=== PATIENT | male | born 1960 | race African-American/Black ===

== ENCOUNTER 2021-07-28 14:06 | Inpatient (IN) | payer OTHER ==
[2021-07-28] MEDS ORDERED: ACETAMINOPHEN 325 MG TABLET (FP) PO PRN ×2 (17:36)
[2021-07-28] MEDS ORDERED: LOPERAMIDE HCL 2 MG CAPSULE PO PRN (17:36)
[2021-07-28] MEDS ORDERED: MAGNESIUM CITRATE 300 ML BOTTLE PO PRN (17:36)
[2021-07-28] MEDS ORDERED: METHOCARBAMOL 500 MG TABLET PO PRN (17:36)
[2021-07-28] MEDS ORDERED: BISMUTH SUBSALICYLATE 524 MG/30 ML PO PRN (17:36)
[2021-07-28] MEDS ORDERED: chlordiazePOXIDE HCL 25 MG CAPSULE PO PRN (17:36)
[2021-07-28] MEDS ORDERED: NICOTINE 10 MG CARTRIDGE (INHALER) IH PRN (17:36)
[2021-07-28] MEDS ORDERED: MAG HYDROX/AL HYDROX/SIMETH 30 ML UNIT-DOSE CUP PO PRN (17:36)
[2021-07-28] MEDS ORDERED: ONDANSETRON *ODT* 4 MG TABLET SL PRN (17:36)
[2021-07-28 17:53] VITALS: BMI 33.7
[2021-07-28] MEDS: MAGNESIUM HYDROX 2400MG/30ML ORAL SUSPENSION 30 ML CUP PO PRN (21:38)
[2021-07-28] MEDS: chlordiazePOXIDE HCL 25 MG CAPSULE PO SCH (22:30)
[2021-07-28] MEDS: MELATONIN 5 MG TABLETS PO SCH (22:31)
[2021-07-28] MEDS: IBUPROFEN 400 MG TABLET (FP) PO PRN (22:31)
[2021-07-28] MEDS: THIAMINE HCL 100 MG TABLET (FP) PO SCH (22:32)
[2021-07-28] MEDS: hydrOXYzine PAMOATE 25 MG CAPSULE (FP) PO SCH ×2 (22:32→23:35)
[2021-07-28] MEDS: MENTHOL/PHENOL 1 EACH UD MM PRN (22:33)
[2021-07-29] MEDS: hydrOXYzine PAMOATE 25 MG CAPSULE (FP) PO SCH ×5 (05:12→22:27)
[2021-07-29] MEDS: chlordiazePOXIDE HCL 25 MG CAPSULE PO SCH ×4 (05:12→22:27)
[2021-07-29] MEDS: PRENATAL VITAMINS W/ FOLIC ACID TABLET (FP) PO SCH (10:11)
[2021-07-29] MEDS: MENTHOL/PHENOL 1 EACH UD MM PRN ×3 (10:14→22:39)
[2021-07-29] MEDS: IBUPROFEN 400 MG TABLET (FP) PO PRN (10:14)
[2021-07-29 12:31] LABS: HEMATOCRIT 38.8 % (35.4-49); HEMOGLOBIN 12.7 GM/dL (11.7-16.9); MCH 26.9 pg (25.7-33.7); MCHC 32.7 g/dl (32.0-35.9); MEAN CELL VOLUME 82.2 fl (80-96); MEAN PLT VOLUME 7.6 fl (7.5-11.1); PLATELET COUNT 316 10^3/uL (134-434); RBC 4.71 M/mm3 (4.00-5.60); RDW 15.7 % (11.9-15.9); WHITE BLOOD COUNT 6.7 K/mm3 (4.0-10.0)
[2021-07-29 12:44] LABS: ALBUMIN 3.3 g/dl (3.4-5.0); BLOOD UREA NITROGEN 12.6 mg/dL (7-18)
[2021-07-29 12:45] LABS: CALCIUM 8.7 mg/dL (8.5-10.1)
[2021-07-29 12:49] LABS: BILIRUBIN,TOTAL 0.9 mg/dL (0.2-1); TOT PROT 7.2 g/dl (6.4-8.2)
[2021-07-29] MEDS: FAMOTIDINE 20 MG TABLET PO SCH (13:47)
[2021-07-29] MEDS: amLODIPine BESYLATE 10 MG TABLET (FP) PO SCH (13:48)
[2021-07-29] MEDS: MAGNESIUM HYDROX 2400MG/30ML ORAL SUSPENSION 30 ML CUP PO PRN (17:56)
[2021-07-29] MEDS: ALBUTEROL SO4 HFA INHALER IH PRN (20:41)
[2021-07-29] MEDS: ATORVASTATIN CA 40 MG TABLET (FP) PO SCH (22:27)
[2021-07-29] MEDS: THIAMINE HCL 100 MG TABLET (FP) PO SCH (22:27)
[2021-07-29] MEDS: MELATONIN 5 MG TABLETS PO SCH (22:27)
[2021-07-30] MEDS: hydrOXYzine PAMOATE 25 MG CAPSULE (FP) PO SCH ×5 (06:02→22:38)
[2021-07-30] MEDS: chlordiazePOXIDE HCL 25 MG CAPSULE PO SCH ×4 (06:02→22:40)
[2021-07-30] MEDS: ALBUTEROL SO4 HFA INHALER IH PRN ×3 (06:03→18:14)
[2021-07-30] MEDS: amLODIPine BESYLATE 10 MG TABLET (FP) PO SCH (10:25)
[2021-07-30] MEDS: PRENATAL VITAMINS W/ FOLIC ACID TABLET (FP) PO SCH (10:25)
[2021-07-30] MEDS: FAMOTIDINE 20 MG TABLET PO SCH (10:25)
[2021-07-30] MEDS: MENTHOL/PHENOL 1 EACH UD MM PRN ×2 (10:27→18:16)
[2021-07-30] MEDS: TIOTROPIUM BROMIDE 2.5 MCG (SPIRIVA) RESPIMAT INHALER IH SCH (13:19)
[2021-07-30] MEDS: MAGNESIUM HYDROX 2400MG/30ML ORAL SUSPENSION 30 ML CUP PO PRN (18:14)
[2021-07-30 19:11] LABS: SARS-CoV-2 NAA Not Detected (Not Detected)
[2021-07-30] MEDS: THIAMINE HCL 100 MG TABLET (FP) PO SCH (22:38)
[2021-07-30] MEDS: MELATONIN 5 MG TABLETS PO SCH (22:38)
[2021-07-30] MEDS: ATORVASTATIN CA 40 MG TABLET (FP) PO SCH (22:38)
[2021-07-30] MEDS: IBUPROFEN 400 MG TABLET (FP) PO PRN (22:41)
[2021-07-31] MEDS ORDERED: chlordiazePOXIDE HCL 10 MG CAPSULE PO PRN
[2021-07-31] MEDS: chlordiazePOXIDE HCL 10 MG CAPSULE PO SCH ×4 (06:37→22:09)
[2021-07-31] MEDS: hydrOXYzine PAMOATE 25 MG CAPSULE (FP) PO SCH ×5 (06:37→22:09)
[2021-07-31] MEDS: MENTHOL/PHENOL 1 EACH UD MM PRN ×3 (06:38→19:02)
[2021-07-31] MEDS: TIOTROPIUM BROMIDE 2.5 MCG (SPIRIVA) RESPIMAT INHALER IH SCH (06:40)
[2021-07-31] MEDS: MAGNESIUM HYDROX 2400MG/30ML ORAL SUSPENSION 30 ML CUP PO PRN (06:42)
[2021-07-31] MEDS: PRENATAL VITAMINS W/ FOLIC ACID TABLET (FP) PO SCH (10:32)
[2021-07-31] MEDS: amLODIPine BESYLATE 10 MG TABLET (FP) PO SCH (10:33)
[2021-07-31] MEDS: FAMOTIDINE 20 MG TABLET PO SCH (10:33)
[2021-07-31] MEDS: IBUPROFEN 400 MG TABLET (FP) PO PRN (10:35)
[2021-07-31] MEDS: ALBUTEROL SO4 HFA INHALER IH PRN (17:53)
[2021-07-31] MEDS: ATORVASTATIN CA 40 MG TABLET (FP) PO SCH (22:09)
[2021-07-31] MEDS: MELATONIN 5 MG TABLETS PO SCH (22:09)
[2021-07-31] MEDS: THIAMINE HCL 100 MG TABLET (FP) PO SCH (22:09)
[2021-08-01] MEDS: hydrOXYzine PAMOATE 25 MG CAPSULE (FP) PO SCH ×5 (05:24→22:43)
[2021-08-01] MEDS: chlordiazePOXIDE HCL 10 MG CAPSULE PO SCH ×2 (05:24→18:07)
[2021-08-01] MEDS: PRENATAL VITAMINS W/ FOLIC ACID TABLET (FP) PO SCH (10:34)
[2021-08-01] MEDS: amLODIPine BESYLATE 10 MG TABLET (FP) PO SCH (10:34)
[2021-08-01] MEDS: FAMOTIDINE 20 MG TABLET PO SCH (10:34)
[2021-08-01] MEDS: INSULIN SLIDING SCALE (NOVOLOG) 1 VIAL SQ SCH (18:18)
[2021-08-01] MEDS: ALBUTEROL SO4 HFA INHALER IH PRN (22:42)
[2021-08-01] MEDS: MAGNESIUM HYDROX 2400MG/30ML ORAL SUSPENSION 30 ML CUP PO PRN (22:43)
[2021-08-01] MEDS: THIAMINE HCL 100 MG TABLET (FP) PO SCH (22:43)
[2021-08-01] MEDS: MELATONIN 5 MG TABLETS PO SCH (22:43)
[2021-08-01] MEDS: ATORVASTATIN CA 40 MG TABLET (FP) PO SCH (22:48)
[2021-08-02] MEDS ORDERED: chlordiazePOXIDE HCL 10 MG CAPSULE PO ONE (05:00)
[2021-08-02] MEDS: hydrOXYzine PAMOATE 25 MG CAPSULE (FP) PO SCH ×5 (05:18→22:19)
[2021-08-02] MEDS: TIOTROPIUM BROMIDE 2.5 MCG (SPIRIVA) RESPIMAT INHALER IH SCH (06:28)
[2021-08-02] MEDS: INSULIN SLIDING SCALE (NOVOLOG) 1 VIAL SQ SCH ×3 (07:39→18:34)
[2021-08-02] MEDS: amLODIPine BESYLATE 10 MG TABLET (FP) PO SCH (10:17)
[2021-08-02] MEDS: PRENATAL VITAMINS W/ FOLIC ACID TABLET (FP) PO SCH (10:17)
[2021-08-02] MEDS: FAMOTIDINE 20 MG TABLET PO SCH (10:18)
[2021-08-02] MEDS: MENTHOL/PHENOL 1 EACH UD MM PRN ×2 (18:31→22:19)
[2021-08-02] MEDS: MAGNESIUM HYDROX 2400MG/30ML ORAL SUSPENSION 30 ML CUP PO PRN (18:32)
[2021-08-02] MEDS: MELATONIN 5 MG TABLETS PO SCH (22:18)
[2021-08-02] MEDS: THIAMINE HCL 100 MG TABLET (FP) PO SCH (22:18)
[2021-08-02] MEDS: ATORVASTATIN CA 40 MG TABLET (FP) PO SCH (22:18)
[2021-08-03] MEDS: MAGNESIUM HYDROX 2400MG/30ML ORAL SUSPENSION 30 ML CUP PO PRN (06:26)
[2021-08-03] MEDS: hydrOXYzine PAMOATE 25 MG CAPSULE (FP) PO SCH ×2 (06:29→10:11)
[2021-08-03] MEDS: INSULIN SLIDING SCALE (NOVOLOG) 1 VIAL SQ SCH (06:29)
[2021-08-03] MEDS: TIOTROPIUM BROMIDE 2.5 MCG (SPIRIVA) RESPIMAT INHALER IH SCH ×2 (06:29→08:34)
[2021-08-03 08:53] VITALS: PULSE 85
[2021-08-03] MEDS: FAMOTIDINE 20 MG TABLET PO SCH (10:10)
[2021-08-03] MEDS: amLODIPine BESYLATE 10 MG TABLET (FP) PO SCH (10:10)
[2021-08-03] MEDS: PRENATAL VITAMINS W/ FOLIC ACID TABLET (FP) PO SCH (10:10)
[2021-08-03 13:04] VITALS: BP 123/57; TEMP 98
[2021-08-03 13:07] LABS: SARS-CoV-2 NAA Not Detected (Not Detected)
== END 2021-08-03 14:37 | disposition other institution (70) | DRG 775 ==
LOC: YASAS 14:06 → Y3N 18:20
PROVIDERS: ADMIT Allergy & Immunology; ATTEND Allergy & Immunology
PROC: HZ2ZZZZ Detoxification Services for Substance Abuse Treatment (ICD-10-PCS; principal; 2021-07-28)
DX: F10.230 Alcohol dependence with withdrawal, uncomplicated (principal); I10 Essential (primary) hypertension; J44.9 Chronic obstructive pulmonary disease, unspecified; K21.9 Gastro-esophageal reflux disease without esophagitis; E78.5 Hyperlipidemia, unspecified; E11.9 Type 2 diabetes mellitus without complications; Z79.4 Long term (current) use of insulin; R60.0 Localized edema; Z87.891 Personal history of nicotine dependence
CPT/HCPCS: 36415; 80053; 82947; 82962; 83036; 85027; 86780; C9803; U0003; U0005

== ENCOUNTER 2021-08-03 14:39 | Inpatient (IN) | payer OTHER ==
[2021-08-03] MEDS ORDERED: PNEUMOC 13-VAL CONJ-DIP CRM/PF 0.5 ML DISP.SYRIN IM ONE (15:25)
[2021-08-03] MEDS ORDERED: MAG HYDROX/AL HYDROX/SIMETH 30 ML UNIT-DOSE CUP PO PRN (15:39)
[2021-08-03] MEDS ORDERED: MAGNESIUM CITRATE 300 ML BOTTLE PO PRN (15:39)
[2021-08-03] MEDS ORDERED: guaiFENesin 200 MG/10 ML 10 ML UNIT-DOSE CUPS PO PRN (15:39)
[2021-08-03] MEDS ORDERED: LOPERAMIDE HCL 2 MG CAPSULE PO PRN (15:39)
[2021-08-03] MEDS ORDERED: MAGNESIUM HYDROX 2400MG/30ML ORAL SUSPENSION 30 ML CUP PO PRN (15:39)
[2021-08-03] MEDS ORDERED: P-EPHED 60MG/TRIPROLIDI 2.5MG TABLET PO PRN (15:39)
[2021-08-03] MEDS ORDERED: ACETAMINOPHEN 325 MG TABLET (FP) PO PRN (15:39)
[2021-08-03] MEDS ORDERED: NICOTINE 10 MG CARTRIDGE (INHALER) IH PRN (15:39)
[2021-08-03 16:07] VITALS: BMI 34.2
[2021-08-03] MEDS: hydrOXYzine PAMOATE 25 MG CAPSULE (FP) PO SCH ×2 (18:35→21:41)
[2021-08-03] MEDS: THIAMINE HCL 100 MG TABLET (FP) PO SCH (21:19)
[2021-08-03] MEDS: MELATONIN 5 MG TABLETS PO SCH (21:20)
[2021-08-03] MEDS: ATORVASTATIN CA 40 MG TABLET (FP) PO SCH (21:20)
[2021-08-03] MEDS: MENTHOL/PHENOL 1 EACH UD MM PRN (21:28)
[2021-08-04] MEDS: hydrOXYzine PAMOATE 25 MG CAPSULE (FP) PO SCH ×5 (06:56→21:03)
[2021-08-04] MEDS: TIOTROPIUM BROMIDE 2.5 MCG (SPIRIVA) RESPIMAT INHALER IH SCH (06:57)
[2021-08-04] MEDS: LISINOPRIL 20 MG TABLET PO SCH (06:58)
[2021-08-04] MEDS: LORATADINE 10 MG TABLET PO SCH (06:58)
[2021-08-04] MEDS ORDERED: PATIENT'S OWN MEDICATION (NON-FORMULARY) (Lisinopril [Lisinopril] 40 MG Tablet) PO SCH (07:00)
[2021-08-04] MEDS ORDERED: PATIENT'S OWN MEDICATION (NON-FORMULARY) (Cetirizine Hcl [Zyrtec] 10 MG Tablet) PO SCH (07:00)
[2021-08-04] MEDS: PRENATAL VITAMINS W/ FOLIC ACID TABLET (FP) PO SCH (10:32)
[2021-08-04] MEDS: amLODIPine BESYLATE 10 MG TABLET (FP) PO SCH (10:32)
[2021-08-04] MEDS: FAMOTIDINE 20 MG TABLET PO SCH (10:32)
[2021-08-04] MEDS: NICOTINE 7 MG/24 HOURS TOPICAL PATCH TD SCH (10:34)
[2021-08-04] MEDS: INSULIN SLIDING SCALE (NOVOLOG) 1 VIAL SQ SCH ×3 (11:40→21:03)
[2021-08-04] MEDS ORDERED: INSULIN SLIDING SCALE (NOVOLOG) 1 VIAL SQ ONE (11:40)
[2021-08-04] MEDS ORDERED: FLU VACC QS2021-22(6MOS UP)/PF 60 MCG/0.5 ML SYRINGE IM ONE (12:00)
[2021-08-04] MEDS ORDERED: PNEUMOCOCCAL 23 VACCINE 0.5 ML VIAL IM ONE (12:00)
[2021-08-04] MEDS: ATORVASTATIN CA 40 MG TABLET (FP) PO SCH (21:03)
[2021-08-04] MEDS: THIAMINE HCL 100 MG TABLET (FP) PO SCH (21:03)
[2021-08-04] MEDS: MELATONIN 5 MG TABLETS PO SCH (21:03)
[2021-08-05] MEDS: IBUPROFEN 400 MG TABLET (FP) PO PRN (05:52)
[2021-08-05] MEDS: hydrOXYzine PAMOATE 25 MG CAPSULE (FP) PO SCH ×5 (05:52→21:48)
[2021-08-05] MEDS: LORATADINE 10 MG TABLET PO SCH (06:45)
[2021-08-05] MEDS: TIOTROPIUM BROMIDE 2.5 MCG (SPIRIVA) RESPIMAT INHALER IH SCH (06:45)
[2021-08-05] MEDS: LISINOPRIL 20 MG TABLET PO SCH (06:45)
[2021-08-05] MEDS: INSULIN SLIDING SCALE (NOVOLOG) 1 VIAL SQ SCH ×4 (07:41→22:17)
[2021-08-05] MEDS: amLODIPine BESYLATE 10 MG TABLET (FP) PO SCH (10:21)
[2021-08-05] MEDS: PRENATAL VITAMINS W/ FOLIC ACID TABLET (FP) PO SCH (10:21)
[2021-08-05] MEDS: NICOTINE 7 MG/24 HOURS TOPICAL PATCH TD SCH (10:21)
[2021-08-05] MEDS: FAMOTIDINE 20 MG TABLET PO SCH (10:22)
[2021-08-05] MEDS: ALBUTEROL SO4 HFA INHALER IH PRN (10:22)
[2021-08-05] MEDS ORDERED: INSULIN SLIDING SCALE (NOVOLOG) 1 VIAL SQ ONE (12:29)
[2021-08-05] MEDS: THIAMINE HCL 100 MG TABLET (FP) PO SCH (21:48)
[2021-08-05] MEDS: ATORVASTATIN CA 40 MG TABLET (FP) PO SCH (21:48)
[2021-08-05] MEDS: MELATONIN 5 MG TABLETS PO SCH (21:48)
[2021-08-06] MEDS: hydrOXYzine PAMOATE 25 MG CAPSULE (FP) PO SCH ×5 (06:09→21:45)
[2021-08-06] MEDS: TIOTROPIUM BROMIDE 2.5 MCG (SPIRIVA) RESPIMAT INHALER IH SCH (06:09)
[2021-08-06] MEDS: LISINOPRIL 20 MG TABLET PO SCH (06:09)
[2021-08-06] MEDS: LORATADINE 10 MG TABLET PO SCH (06:09)
[2021-08-06] MEDS: ALBUTEROL SO4 HFA INHALER IH PRN (06:11)
[2021-08-06] MEDS: INSULIN SLIDING SCALE (NOVOLOG) 1 VIAL SQ SCH ×4 (06:13→21:45)
[2021-08-06] MEDS: PRENATAL VITAMINS W/ FOLIC ACID TABLET (FP) PO SCH (10:32)
[2021-08-06] MEDS: amLODIPine BESYLATE 10 MG TABLET (FP) PO SCH (10:32)
[2021-08-06] MEDS: NICOTINE 7 MG/24 HOURS TOPICAL PATCH TD SCH (10:32)
[2021-08-06] MEDS: FAMOTIDINE 20 MG TABLET PO SCH (10:32)
[2021-08-06] MEDS: ATORVASTATIN CA 40 MG TABLET (FP) PO SCH (21:44)
[2021-08-06] MEDS: MELATONIN 5 MG TABLETS PO SCH (21:44)
[2021-08-06] MEDS: THIAMINE HCL 100 MG TABLET (FP) PO SCH (21:45)
[2021-08-07] MEDS: ALBUTEROL SO4 HFA INHALER IH PRN (06:27)
[2021-08-07] MEDS: TIOTROPIUM BROMIDE 2.5 MCG (SPIRIVA) RESPIMAT INHALER IH SCH (06:27)
[2021-08-07] MEDS: LISINOPRIL 20 MG TABLET PO SCH (06:27)
[2021-08-07] MEDS: hydrOXYzine PAMOATE 25 MG CAPSULE (FP) PO SCH ×2 (06:27→10:31)
[2021-08-07] MEDS: LORATADINE 10 MG TABLET PO SCH (06:27)
[2021-08-07] MEDS: INSULIN SLIDING SCALE (NOVOLOG) 1 VIAL SQ SCH ×4 (06:29→21:03)
[2021-08-07] MEDS: PRENATAL VITAMINS W/ FOLIC ACID TABLET (FP) PO SCH (10:30)
[2021-08-07] MEDS: amLODIPine BESYLATE 10 MG TABLET (FP) PO SCH (10:31)
[2021-08-07] MEDS: FAMOTIDINE 20 MG TABLET PO SCH (10:31)
[2021-08-07] MEDS: NICOTINE 7 MG/24 HOURS TOPICAL PATCH TD SCH (10:34)
[2021-08-07] MEDS ORDERED: hydrOXYzine PAMOATE 25 MG CAPSULE (FP) PO PRN (11:19)
[2021-08-07] MEDS: IBUPROFEN 400 MG TABLET (FP) PO PRN (11:59)
[2021-08-07 14:08] LABS: SARS-CoV-2 NAA Not Detected (Not Detected)
[2021-08-07] MEDS: THIAMINE HCL 100 MG TABLET (FP) PO SCH (21:01)
[2021-08-07] MEDS: ATORVASTATIN CA 40 MG TABLET (FP) PO SCH (21:02)
[2021-08-07] MEDS: MELATONIN 5 MG TABLETS PO SCH (21:02)
[2021-08-08] MEDS: INSULIN SLIDING SCALE (NOVOLOG) 1 VIAL SQ SCH ×4 (06:31→21:26)
[2021-08-08] MEDS: LORATADINE 10 MG TABLET PO SCH (06:31)
[2021-08-08] MEDS: LISINOPRIL 20 MG TABLET PO SCH (06:31)
[2021-08-08] MEDS: TIOTROPIUM BROMIDE 2.5 MCG (SPIRIVA) RESPIMAT INHALER IH SCH (06:32)
[2021-08-08] MEDS: ALBUTEROL SO4 HFA INHALER IH PRN (06:33)
[2021-08-08] MEDS: PRENATAL VITAMINS W/ FOLIC ACID TABLET (FP) PO SCH (10:26)
[2021-08-08] MEDS: FAMOTIDINE 20 MG TABLET PO SCH (10:26)
[2021-08-08] MEDS: NICOTINE 7 MG/24 HOURS TOPICAL PATCH TD SCH (10:26)
[2021-08-08] MEDS: amLODIPine BESYLATE 10 MG TABLET (FP) PO SCH (10:26)
[2021-08-08] MEDS: IBUPROFEN 400 MG TABLET (FP) PO PRN (16:01)
[2021-08-08] MEDS: ATORVASTATIN CA 40 MG TABLET (FP) PO SCH (21:25)
[2021-08-08] MEDS: THIAMINE HCL 100 MG TABLET (FP) PO SCH (21:25)
[2021-08-08] MEDS: MELATONIN 5 MG TABLETS PO SCH (21:26)
[2021-08-09] MEDS: ALBUTEROL SO4 HFA INHALER IH PRN (04:19)
[2021-08-09] MEDS: TIOTROPIUM BROMIDE 2.5 MCG (SPIRIVA) RESPIMAT INHALER IH SCH (06:20)
[2021-08-09] MEDS: LISINOPRIL 20 MG TABLET PO SCH (06:20)
[2021-08-09] MEDS: LORATADINE 10 MG TABLET PO SCH (06:20)
[2021-08-09] MEDS: INSULIN SLIDING SCALE (NOVOLOG) 1 VIAL SQ SCH ×4 (06:38→21:08)
[2021-08-09] MEDS: PRENATAL VITAMINS W/ FOLIC ACID TABLET (FP) PO SCH (09:57)
[2021-08-09] MEDS: NICOTINE 7 MG/24 HOURS TOPICAL PATCH TD SCH (09:57)
[2021-08-09] MEDS: amLODIPine BESYLATE 10 MG TABLET (FP) PO SCH (09:57)
[2021-08-09] MEDS: FAMOTIDINE 20 MG TABLET PO SCH (09:57)
[2021-08-09] MEDS: MELATONIN 5 MG TABLETS PO SCH (21:05)
[2021-08-09] MEDS: THIAMINE HCL 100 MG TABLET (FP) PO SCH (21:05)
[2021-08-09] MEDS: ATORVASTATIN CA 40 MG TABLET (FP) PO SCH (21:05)
[2021-08-09] MEDS: IBUPROFEN 400 MG TABLET (FP) PO PRN (21:06)
[2021-08-10] MEDS: TIOTROPIUM BROMIDE 2.5 MCG (SPIRIVA) RESPIMAT INHALER IH SCH (06:15)
[2021-08-10] MEDS: LORATADINE 10 MG TABLET PO SCH (06:15)
[2021-08-10] MEDS: LISINOPRIL 20 MG TABLET PO SCH (06:15)
[2021-08-10] MEDS: ALBUTEROL SO4 HFA INHALER IH PRN (06:16)
[2021-08-10] MEDS: INSULIN SLIDING SCALE (NOVOLOG) 1 VIAL SQ SCH ×2 (06:18→16:39)
[2021-08-10] MEDS: PRENATAL VITAMINS W/ FOLIC ACID TABLET (FP) PO SCH (11:21)
[2021-08-10] MEDS: NICOTINE 7 MG/24 HOURS TOPICAL PATCH TD SCH (11:21)
[2021-08-10] MEDS: FAMOTIDINE 20 MG TABLET PO SCH (11:21)
[2021-08-10] MEDS: amLODIPine BESYLATE 10 MG TABLET (FP) PO SCH (11:21)
[2021-08-10] MEDS: THIAMINE HCL 100 MG TABLET (FP) PO SCH (21:24)
[2021-08-10] MEDS: MELATONIN 5 MG TABLETS PO SCH (21:24)
[2021-08-10] MEDS: ATORVASTATIN CA 40 MG TABLET (FP) PO SCH (21:24)
[2021-08-11] MEDS: TIOTROPIUM BROMIDE 2.5 MCG (SPIRIVA) RESPIMAT INHALER IH SCH (06:26)
[2021-08-11] MEDS: LISINOPRIL 20 MG TABLET PO SCH (06:26)
[2021-08-11] MEDS: LORATADINE 10 MG TABLET PO SCH (06:26)
[2021-08-11] MEDS: IBUPROFEN 400 MG TABLET (FP) PO PRN ×2 (06:27→20:14)
[2021-08-11] MEDS: ALBUTEROL SO4 HFA INHALER IH PRN (06:27)
[2021-08-11] MEDS: INSULIN SLIDING SCALE (NOVOLOG) 1 VIAL SQ SCH ×2 (06:29→17:09)
[2021-08-11] MEDS: PRENATAL VITAMINS W/ FOLIC ACID TABLET (FP) PO SCH (09:55)
[2021-08-11] MEDS: NICOTINE 7 MG/24 HOURS TOPICAL PATCH TD SCH (09:55)
[2021-08-11] MEDS: amLODIPine BESYLATE 10 MG TABLET (FP) PO SCH (09:55)
[2021-08-11] MEDS: FAMOTIDINE 20 MG TABLET PO SCH (09:55)
[2021-08-11] MEDS: THIAMINE HCL 100 MG TABLET (FP) PO SCH (21:12)
[2021-08-11] MEDS: ATORVASTATIN CA 40 MG TABLET (FP) PO SCH (21:12)
[2021-08-11] MEDS: MELATONIN 5 MG TABLETS PO SCH (21:12)
[2021-08-11] MEDS: MENTHOL/PHENOL 1 EACH UD MM PRN (23:21)
[2021-08-12] MEDS: LISINOPRIL 20 MG TABLET PO SCH (06:29)
[2021-08-12] MEDS: LORATADINE 10 MG TABLET PO SCH (06:29)
[2021-08-12] MEDS: TIOTROPIUM BROMIDE 2.5 MCG (SPIRIVA) RESPIMAT INHALER IH SCH (06:30)
[2021-08-12] MEDS: INSULIN SLIDING SCALE (NOVOLOG) 1 VIAL SQ SCH (06:32)
[2021-08-12 07:50] VITALS: TEMP 98.4
[2021-08-12] MEDS: FAMOTIDINE 20 MG TABLET PO SCH (10:24)
[2021-08-12] MEDS: PRENATAL VITAMINS W/ FOLIC ACID TABLET (FP) PO SCH (10:24)
[2021-08-12] MEDS: NICOTINE 7 MG/24 HOURS TOPICAL PATCH TD SCH (10:24)
[2021-08-12] MEDS: amLODIPine BESYLATE 10 MG TABLET (FP) PO SCH (10:24)
[2021-08-12 10:41] VITALS: BP 127/77; PULSE 86
== END 2021-08-12 14:06 | disposition home or self-care (01) | DRG 772 ==
LOC: YASAS 14:39 → Y3W 14:48
PROVIDERS: ADMIT Allergy & Immunology; ATTEND Allergy & Immunology
PROC: HZ42ZZZ Group Counseling for Substance Abuse Treatment, Cognitive-Behavioral (ICD-10-PCS; principal; 2021-08-03)
DX: F10.20 Alcohol dependence, uncomplicated (principal); F14.20 Cocaine dependence, uncomplicated; E78.5 Hyperlipidemia, unspecified; E11.9 Type 2 diabetes mellitus without complications; Z79.4 Long term (current) use of insulin; I10 Essential (primary) hypertension; J44.9 Chronic obstructive pulmonary disease, unspecified; K21.9 Gastro-esophageal reflux disease without esophagitis; Z59.00 Homelessness unspecified; Z87.891 Personal history of nicotine dependence
CPT/HCPCS: 82962; C9803-CS; U0003; U0005

== ENCOUNTER 2021-09-19 12:41 | Inpatient (IN) | payer OTHER ==
[2021-09-19] MEDS ORDERED: BISMUTH SUBSALICYLATE 524 MG/30 ML PO PRN (14:15)
[2021-09-19] MEDS ORDERED: ACETAMINOPHEN 325 MG TABLET (FP) PO PRN ×2 (14:15)
[2021-09-19] MEDS ORDERED: NICOTINE 10 MG CARTRIDGE (INHALER) IH PRN (14:15)
[2021-09-19] MEDS ORDERED: BENZOCAINE/MENTHOL (CHLORASEPTIC ) LOZENGE MM PRN (14:15)
[2021-09-19] MEDS ORDERED: ONDANSETRON *ODT* 4 MG TABLET SL PRN (14:15)
[2021-09-19] MEDS ORDERED: chlordiazePOXIDE HCL 25 MG CAPSULE PO PRN (14:15)
[2021-09-19] MEDS ORDERED: NALOXONE HCL 0.4 MG/ML VIAL IM PRN (14:15)
[2021-09-19] MEDS ORDERED: DICYCLOMINE HCL 10 MG CAPSULE PO PRN (14:15)
[2021-09-19] MEDS ORDERED: MAG HYDROX/AL HYDROX/SIMETH 30 ML UNIT-DOSE CUP PO PRN (14:15)
[2021-09-19] MEDS ORDERED: MAGNESIUM HYDROX 2400MG/30ML ORAL SUSPENSION 30 ML CUP PO PRN (14:15)
[2021-09-19] MEDS ORDERED: MAGNESIUM CITRATE 300 ML BOTTLE PO PRN (14:15)
[2021-09-19] MEDS ORDERED: LOPERAMIDE HCL 2 MG CAPSULE PO PRN (14:15)
[2021-09-19] MEDS ORDERED: METHOCARBAMOL 500 MG TABLET PO PRN (14:15)
[2021-09-19 14:46] VITALS: BMI 35.4
[2021-09-19] MEDS ORDERED: INSULIN SLIDING SCALE (NOVOLOG) 1 VIAL SQ SCH (16:30)
[2021-09-19] MEDS: FAMOTIDINE 20 MG TABLET PO SCH (17:49)
[2021-09-19] MEDS: hydrOXYzine PAMOATE 25 MG CAPSULE (FP) PO SCH ×2 (17:49→22:44)
[2021-09-19] MEDS: PRENATAL VITAMINS W/ FOLIC ACID TABLET (FP) PO SCH (17:49)
[2021-09-19] MEDS: chlordiazePOXIDE HCL 25 MG CAPSULE PO SCH ×2 (17:49→22:43)
[2021-09-19] MEDS ORDERED: MELATONIN 5 MG TABLETS PO SCH (22:00)
[2021-09-19] MEDS: ATORVASTATIN CA 40 MG TABLET (FP) PO SCH (22:44)
[2021-09-19] MEDS: THIAMINE HCL 100 MG TABLET (FP) PO SCH (22:44)
[2021-09-20] MEDS: IBUPROFEN 400 MG TABLET (FP) PO PRN ×2 (02:52→21:00)
[2021-09-20] MEDS: chlordiazePOXIDE HCL 25 MG CAPSULE PO SCH ×2 (06:30→10:34)
[2021-09-20] MEDS: hydrOXYzine PAMOATE 25 MG CAPSULE (FP) PO SCH ×5 (06:30→22:23)
[2021-09-20] MEDS: ALBUTEROL SO4 HFA INHALER IH PRN (06:31)
[2021-09-20] MEDS: LISINOPRIL 20 MG TABLET PO SCH (07:40)
[2021-09-20] MEDS: LORATADINE 10 MG TABLET PO SCH (07:40)
[2021-09-20] MEDS: TIOTROPIUM BROMIDE 2.5 MCG (SPIRIVA) RESPIMAT INHALER IH SCH (07:57)
[2021-09-20] MEDS: PRENATAL VITAMINS W/ FOLIC ACID TABLET (FP) PO SCH (10:33)
[2021-09-20] MEDS: amLODIPine BESYLATE 10 MG TABLET (FP) PO SCH (10:33)
[2021-09-20] MEDS: FAMOTIDINE 20 MG TABLET PO SCH (10:33)
[2021-09-20 12:17] LABS: HEMOGLOBIN 11.6 GM/dL (11.7-16.9); MCH 26.3 pg (25.7-33.7); MCHC 32.1 g/dl (32.0-35.9); MEAN CELL VOLUME 81.9 fl (80-96); MEAN PLT VOLUME 8.2 fl (7.5-11.1); PLATELET COUNT 341 10^3/uL (134-434); RDW 15.9 % (11.9-15.9); WHITE BLOOD COUNT 6.3 K/mm3 (4.0-10.0)
[2021-09-20 12:24] LABS: CALCIUM 8.7 mg/dL (8.5-10.1)
[2021-09-20 12:25] LABS: ALBUMIN 3.1 g/dl (3.4-5.0); BLOOD UREA NITROGEN 15.4 mg/dL (7-18)
[2021-09-20 12:28] LABS: CREATININE 0.9 mg/dL (0.55-1.3)
[2021-09-20 12:29] LABS: BILIRUBIN,TOTAL 0.3 mg/dL (0.2-1); TOT PROT 6.3 g/dl (6.4-8.2)
[2021-09-20] MEDS: chlordiazePOXIDE HCL 10 MG CAPSULE PO SCH ×2 (18:07→22:24)
[2021-09-20] MEDS: INSULIN SLIDING SCALE (NOVOLOG) 1 VIAL SQ SCH (18:10)
[2021-09-20] MEDS: THIAMINE HCL 100 MG TABLET (FP) PO SCH (22:23)
[2021-09-20] MEDS: ATORVASTATIN CA 40 MG TABLET (FP) PO SCH (22:23)
[2021-09-20] MEDS: MELATONIN 5 MG TABLETS PO SCH (22:24)
[2021-09-21] MEDS: chlordiazePOXIDE HCL 25 MG CAPSULE PO SCH ×4 (05:17→22:15)
[2021-09-21] MEDS: hydrOXYzine PAMOATE 25 MG CAPSULE (FP) PO SCH ×5 (05:17→22:16)
[2021-09-21] MEDS: IBUPROFEN 400 MG TABLET (FP) PO PRN ×2 (05:29→22:18)
[2021-09-21] MEDS: LISINOPRIL 20 MG TABLET PO SCH (06:06)
[2021-09-21] MEDS: LORATADINE 10 MG TABLET PO SCH (06:06)
[2021-09-21] MEDS: TIOTROPIUM BROMIDE 2.5 MCG (SPIRIVA) RESPIMAT INHALER IH SCH (06:07)
[2021-09-21] MEDS: INSULIN SLIDING SCALE (NOVOLOG) 1 VIAL SQ SCH ×2 (07:27→17:21)
[2021-09-21] MEDS: amLODIPine BESYLATE 10 MG TABLET (FP) PO SCH (10:40)
[2021-09-21] MEDS: PRENATAL VITAMINS W/ FOLIC ACID TABLET (FP) PO SCH (10:40)
[2021-09-21] MEDS: FAMOTIDINE 20 MG TABLET PO SCH (10:41)
[2021-09-21 13:07] LABS: SARS-CoV-2 NAA Not Detected (Not Detected)
[2021-09-21] MEDS ORDERED: INSULIN (NOVOLOG) ASPART 100 UNITS/ML 10ML VIAL ONE (17:14)
[2021-09-21] MEDS: ATORVASTATIN CA 40 MG TABLET (FP) PO SCH (22:15)
[2021-09-21] MEDS: MELATONIN 5 MG TABLETS PO SCH (22:16)
[2021-09-21] MEDS: THIAMINE HCL 100 MG TABLET (FP) PO SCH (22:16)
[2021-09-22] MEDS ORDERED: chlordiazePOXIDE HCL 10 MG CAPSULE PO PRN
[2021-09-22] MEDS: chlordiazePOXIDE HCL 10 MG CAPSULE PO SCH ×2 (05:24→10:17)
[2021-09-22] MEDS: ALBUTEROL SO4 HFA INHALER IH PRN (05:25)
[2021-09-22 05:51] VITALS: BP 130/71; PULSE 70; TEMP 96.9
[2021-09-22] MEDS: hydrOXYzine PAMOATE 25 MG CAPSULE (FP) PO SCH ×2 (06:33→10:17)
[2021-09-22] MEDS: LORATADINE 10 MG TABLET PO SCH (06:34)
[2021-09-22] MEDS: LISINOPRIL 20 MG TABLET PO SCH (06:34)
[2021-09-22] MEDS: TIOTROPIUM BROMIDE 2.5 MCG (SPIRIVA) RESPIMAT INHALER IH SCH (06:35)
[2021-09-22] MEDS: INSULIN SLIDING SCALE (NOVOLOG) 1 VIAL SQ SCH (06:35)
[2021-09-22] MEDS: amLODIPine BESYLATE 10 MG TABLET (FP) PO SCH (10:17)
[2021-09-22] MEDS: PRENATAL VITAMINS W/ FOLIC ACID TABLET (FP) PO SCH (10:17)
[2021-09-22] MEDS: FAMOTIDINE 20 MG TABLET PO SCH (10:17)
[2021-09-23] MEDS ORDERED: chlordiazePOXIDE HCL 10 MG CAPSULE PO SCH (05:00)
[2021-09-24] MEDS ORDERED: chlordiazePOXIDE HCL 10 MG CAPSULE PO ONE (05:00)
== END 2021-09-22 14:24 | disposition left against medical advice (07) | DRG 770 ==
LOC: YASAS 12:41 → Y6N 16:57
PROVIDERS: ADMIT Allergy & Immunology; ATTEND Allergy & Immunology
PROC: HZ2ZZZZ Detoxification Services for Substance Abuse Treatment (ICD-10-PCS; principal; 2021-09-19)
DX: F10.20 Alcohol dependence, uncomplicated (principal); F14.20 Cocaine dependence, uncomplicated; F10.282 Alcohol dependence with alcohol-induced sleep disorder; E78.5 Hyperlipidemia, unspecified; E11.9 Type 2 diabetes mellitus without complications; I10 Essential (primary) hypertension; J44.9 Chronic obstructive pulmonary disease, unspecified; K21.9 Gastro-esophageal reflux disease without esophagitis; R60.0 Localized edema; E66.9 Obesity, unspecified; Z68.35 Body mass index [BMI] 35.0-35.9, adult; Z56.0 Unemployment, unspecified; Z59.00 Homelessness unspecified
CPT/HCPCS: 36415; 80053; 82962; 85027; 86780; C9803-CS; U0003; U0005

== ENCOUNTER 2021-11-16 11:23 | Inpatient (IN) | payer OTHER ==
[2021-11-16 12:33] VITALS: BMI 32.6
[2021-11-16] MEDS ORDERED: MAGNESIUM HYDROX 2400MG/30ML ORAL SUSPENSION 30 ML CUP PO PRN (12:56)
[2021-11-16] MEDS ORDERED: NICOTINE 10 MG CARTRIDGE (INHALER) IH PRN (12:56)
[2021-11-16] MEDS ORDERED: MAGNESIUM CITRATE 300 ML BOTTLE PO PRN (12:56)
[2021-11-16] MEDS ORDERED: IBUPROFEN 400 MG TABLET (FP) PO PRN (12:56)
[2021-11-16] MEDS ORDERED: ONDANSETRON *ODT* 4 MG TABLET SL PRN (12:56)
[2021-11-16] MEDS ORDERED: LOPERAMIDE HCL 2 MG CAPSULE PO PRN (12:56)
[2021-11-16] MEDS ORDERED: BISMUTH SUBSALICYLATE 262 MG/15 ML BTL PO PRN (12:56)
[2021-11-16] MEDS ORDERED: DICYCLOMINE HCL 10 MG CAPSULE PO PRN (12:56)
[2021-11-16] MEDS ORDERED: MAG HYDROX/AL HYDROX/SIMETH 30 ML UNIT-DOSE CUP PO PRN (12:56)
[2021-11-16] MEDS ORDERED: ACETAMINOPHEN 325 MG TABLET (FP) PO PRN ×2 (12:56)
[2021-11-16] MEDS ORDERED: BENZOCAINE/MENTHOL (CHLORASEPTIC ) LOZENGE MM PRN (12:56)
[2021-11-16] MEDS ORDERED: IBUPROFEN 600 MG TABLET (FP) PO PRN (12:56)
[2021-11-16] MEDS: PRENATAL VITAMINS W/ FOLIC ACID TABLET (FP) PO SCH (15:32)
[2021-11-16] MEDS: FAMOTIDINE 20 MG TABLET PO SCH (15:32)
[2021-11-16] MEDS: hydrOXYzine PAMOATE 25 MG CAPSULE (FP) PO SCH ×3 (15:32→22:51)
[2021-11-16] MEDS: chlordiazePOXIDE HCL 25 MG CAPSULE PO PRN ×2 (15:32→18:08)
[2021-11-16 15:58] LABS: HEMATOCRIT 41.9 % (35.4-49); HEMOGLOBIN 13.7 GM/dL (11.7-16.9); MCH 26.7 pg (25.7-33.7); MCHC 32.6 g/dl (32.0-35.9); MEAN PLT VOLUME 7.4 fl (7.5-11.1); PLATELET COUNT 281 10^3/uL (134-434); RBC 5.11 M/mm3 (4.00-5.60); RDW 16.5 % (11.9-15.9); WHITE BLOOD COUNT 6.9 K/mm3 (4.0-10.0)
[2021-11-16 16:12] LABS: ALBUMIN 3.5 g/dl (3.4-5.0); BLOOD UREA NITROGEN 18.9 mg/dL (7-18)
[2021-11-16 16:15] LABS: BILIRUBIN,TOTAL 0.2 mg/dL (0.2-1); TOT PROT 7.6 g/dl (6.4-8.2)
[2021-11-16 16:16] LABS: CALCIUM 8.9 mg/dL (8.5-10.1); CREATININE 1.4 mg/dL (0.55-1.3)
[2021-11-16] MEDS ORDERED: INSULIN (NOVOLOG) ASPART 100 UNITS/ML 10ML VIAL ONE (16:28)
[2021-11-16] MEDS: INSULIN SLIDING SCALE (NOVOLOG) 1 VIAL SQ SCH (16:50)
[2021-11-16] MEDS: ALBUTEROL SO4 HFA INHALER IH PRN (18:08)
[2021-11-16] MEDS ORDERED: MELATONIN 5 MG TABLETS PO SCH (22:00)
[2021-11-16] MEDS: chlordiazePOXIDE HCL 25 MG CAPSULE PO SCH (22:51)
[2021-11-16] MEDS: MELATONIN 5 MG TABLETS PO SCH (22:51)
[2021-11-16] MEDS: ATORVASTATIN CA 40 MG TABLET (FP) PO SCH (22:51)
[2021-11-16] MEDS: THIAMINE HCL 100 MG TABLET (FP) PO SCH (22:51)
[2021-11-17] MEDS: hydrOXYzine PAMOATE 25 MG CAPSULE (FP) PO SCH ×5 (05:28→22:31)
[2021-11-17] MEDS: chlordiazePOXIDE HCL 25 MG CAPSULE PO SCH ×4 (05:28→22:32)
[2021-11-17] MEDS: INSULIN SLIDING SCALE (NOVOLOG) 1 VIAL SQ SCH ×2 (06:50→17:35)
[2021-11-17] MEDS: TIOTROPIUM BROMIDE 2.5 MCG (SPIRIVA) RESPIMAT INHALER IH SCH (07:01)
[2021-11-17] MEDS: LISINOPRIL 20 MG TABLET PO SCH (07:04)
[2021-11-17] MEDS: FAMOTIDINE 20 MG TABLET PO SCH (10:13)
[2021-11-17] MEDS: METHOCARBAMOL 500 MG TABLET PO PRN (10:13)
[2021-11-17] MEDS: PRENATAL VITAMINS W/ FOLIC ACID TABLET (FP) PO SCH (10:13)
[2021-11-17] MEDS: ALBUTEROL SO4 HFA INHALER IH PRN (19:43)
[2021-11-17] MEDS: THIAMINE HCL 100 MG TABLET (FP) PO SCH (22:31)
[2021-11-17] MEDS: ATORVASTATIN CA 40 MG TABLET (FP) PO SCH (22:31)
[2021-11-17] MEDS: MELATONIN 5 MG TABLETS PO SCH (22:32)
[2021-11-18] MEDS: chlordiazePOXIDE HCL 25 MG CAPSULE PO SCH ×4 (05:16→22:43)
[2021-11-18] MEDS: hydrOXYzine PAMOATE 25 MG CAPSULE (FP) PO SCH ×5 (05:16→22:43)
[2021-11-18] MEDS: INSULIN SLIDING SCALE (NOVOLOG) 1 VIAL SQ SCH ×2 (06:20→19:00)
[2021-11-18] MEDS: LISINOPRIL 20 MG TABLET PO SCH (06:21)
[2021-11-18] MEDS: TIOTROPIUM BROMIDE 2.5 MCG (SPIRIVA) RESPIMAT INHALER IH SCH (06:22)
[2021-11-18] MEDS: PRENATAL VITAMINS W/ FOLIC ACID TABLET (FP) PO SCH (10:45)
[2021-11-18] MEDS: FAMOTIDINE 20 MG TABLET PO SCH (10:46)
[2021-11-18] MEDS: METHOCARBAMOL 500 MG TABLET PO PRN (10:46)
[2021-11-18] MEDS: MELATONIN 5 MG TABLETS PO SCH (22:42)
[2021-11-18] MEDS: THIAMINE HCL 100 MG TABLET (FP) PO SCH (22:43)
[2021-11-18] MEDS: ATORVASTATIN CA 40 MG TABLET (FP) PO SCH (22:43)
[2021-11-19] MEDS ORDERED: chlordiazePOXIDE HCL 10 MG CAPSULE PO PRN
[2021-11-19] MEDS: hydrOXYzine PAMOATE 25 MG CAPSULE (FP) PO SCH ×6 (05:50→22:28)
[2021-11-19] MEDS: chlordiazePOXIDE HCL 10 MG CAPSULE PO SCH ×4 (05:50→22:29)
[2021-11-19] MEDS: INSULIN SLIDING SCALE (NOVOLOG) 1 VIAL SQ SCH ×2 (06:09→16:59)
[2021-11-19] MEDS: LISINOPRIL 20 MG TABLET PO SCH (06:09)
[2021-11-19] MEDS: TIOTROPIUM BROMIDE 2.5 MCG (SPIRIVA) RESPIMAT INHALER IH SCH (06:09)
[2021-11-19] MEDS ORDERED: INSULIN (NOVOLOG) ASPART 100 UNITS/ML 10ML VIAL ONE (06:11)
[2021-11-19] MEDS: PRENATAL VITAMINS W/ FOLIC ACID TABLET (FP) PO SCH (10:26)
[2021-11-19] MEDS: FAMOTIDINE 20 MG TABLET PO SCH (10:26)
[2021-11-19] MEDS: ATORVASTATIN CA 40 MG TABLET (FP) PO SCH (22:28)
[2021-11-19] MEDS: THIAMINE HCL 100 MG TABLET (FP) PO SCH (22:28)
[2021-11-19] MEDS: MELATONIN 5 MG TABLETS PO SCH (22:28)
[2021-11-20] MEDS ORDERED: INSULIN (NOVOLOG) ASPART 100 UNITS/ML 10ML VIAL ONE (06:09)
[2021-11-20] MEDS: hydrOXYzine PAMOATE 25 MG CAPSULE (FP) PO SCH ×5 (06:10→22:32)
[2021-11-20] MEDS: chlordiazePOXIDE HCL 10 MG CAPSULE PO SCH ×2 (06:10→17:22)
[2021-11-20] MEDS: LISINOPRIL 20 MG TABLET PO SCH (07:00)
[2021-11-20] MEDS: TIOTROPIUM BROMIDE 2.5 MCG (SPIRIVA) RESPIMAT INHALER IH SCH (07:00)
[2021-11-20] MEDS: INSULIN SLIDING SCALE (NOVOLOG) 1 VIAL SQ SCH ×2 (08:34→17:25)
[2021-11-20] MEDS: PRENATAL VITAMINS W/ FOLIC ACID TABLET (FP) PO SCH (10:34)
[2021-11-20] MEDS: FAMOTIDINE 20 MG TABLET PO SCH (10:34)
[2021-11-20] MEDS: MELATONIN 5 MG TABLETS PO SCH (22:31)
[2021-11-20] MEDS: THIAMINE HCL 100 MG TABLET (FP) PO SCH (22:32)
[2021-11-20] MEDS: ATORVASTATIN CA 40 MG TABLET (FP) PO SCH (22:32)
[2021-11-20] MEDS: METHOCARBAMOL 500 MG TABLET PO PRN (22:32)
[2021-11-21] MEDS ORDERED: chlordiazePOXIDE HCL 10 MG CAPSULE PO ONE (05:00)
[2021-11-21] MEDS: LISINOPRIL 20 MG TABLET PO SCH (06:11)
[2021-11-21] MEDS: hydrOXYzine PAMOATE 25 MG CAPSULE (FP) PO SCH ×2 (06:11→10:25)
[2021-11-21] MEDS: ALBUTEROL SO4 HFA INHALER IH PRN (06:14)
[2021-11-21] MEDS: TIOTROPIUM BROMIDE 2.5 MCG (SPIRIVA) RESPIMAT INHALER IH SCH (06:14)
[2021-11-21] MEDS: INSULIN SLIDING SCALE (NOVOLOG) 1 VIAL SQ SCH (08:11)
[2021-11-21 08:54] VITALS: BP 135/77; PULSE 86; TEMP 98
[2021-11-21] MEDS: PRENATAL VITAMINS W/ FOLIC ACID TABLET (FP) PO SCH (10:25)
[2021-11-21] MEDS: FAMOTIDINE 20 MG TABLET PO SCH (10:25)
== END 2021-11-21 11:29 | disposition other institution (70) | DRG 774 ==
LOC: YASAS 11:23 → Y6N 12:55
PROVIDERS: ADMIT Allergy & Immunology; ATTEND Surgery
PROC: HZ2ZZZZ Detoxification Services for Substance Abuse Treatment (ICD-10-PCS; principal; 2021-11-16)
DX: F10.230 Alcohol dependence with withdrawal, uncomplicated (principal); F10.282 Alcohol dependence with alcohol-induced sleep disorder; F14.20 Cocaine dependence, uncomplicated; F19.282 Other psychoactive substance dependence with psychoactive substance-induced sleep disorder; I10 Essential (primary) hypertension; E11.65 Type 2 diabetes mellitus with hyperglycemia; E78.5 Hyperlipidemia, unspecified; J45.20 Mild intermittent asthma, uncomplicated; J43.9 Emphysema, unspecified; K21.9 Gastro-esophageal reflux disease without esophagitis; Z87.891 Personal history of nicotine dependence; Z79.4 Long term (current) use of insulin; Z56.0 Unemployment, unspecified; Z59.00 Homelessness unspecified
CPT/HCPCS: 36415; 80053; 82962; 85027; 86780; 87811; C9803-CS; U0003; U0005

== ENCOUNTER 2021-11-21 11:33 | Inpatient (IN) | payer OTHER ==
[2021-11-21] MEDS ORDERED: hydrOXYzine PAMOATE 25 MG CAPSULE (FP) PO PRN (13:03)
[2021-11-21] MEDS ORDERED: LOPERAMIDE HCL 2 MG CAPSULE PO PRN (13:03)
[2021-11-21] MEDS ORDERED: IBUPROFEN 400 MG TABLET (FP) PO PRN (13:03)
[2021-11-21] MEDS ORDERED: NICOTINE 10 MG CARTRIDGE (INHALER) IH PRN (13:03)
[2021-11-21] MEDS ORDERED: BENZOCAINE/MENTHOL (CHLORASEPTIC ) LOZENGE MM PRN (13:03)
[2021-11-21] MEDS ORDERED: MAGNESIUM CITRATE 300 ML BOTTLE PO PRN (13:03)
[2021-11-21] MEDS ORDERED: ACETAMINOPHEN 325 MG TABLET (FP) PO PRN (13:03)
[2021-11-21] MEDS ORDERED: MAG HYDROX/AL HYDROX/SIMETH 30 ML UNIT-DOSE CUP PO PRN (13:03)
[2021-11-21] MEDS ORDERED: guaiFENesin 200 MG/10 ML 10 ML UNIT-DOSE CUPS PO PRN (13:03)
[2021-11-21] MEDS ORDERED: P-EPHED 60MG/TRIPROLIDI 2.5MG TABLET PO PRN (13:03)
[2021-11-21] MEDS ORDERED: MAGNESIUM HYDROX 2400MG/30ML ORAL SUSPENSION 30 ML CUP PO PRN (13:03)
[2021-11-21] MEDS ORDERED: NICOTINE POLACRILEX 2 MG GUM BUC PRN (13:03)
[2021-11-21] MEDS ORDERED: ALBUTEROL SO4 HFA INHALER IH PRN (13:04)
[2021-11-21] MEDS: INSULIN SLIDING SCALE (NOVOLOG) 1 VIAL SQ SCH (17:39)
[2021-11-21] MEDS: MELATONIN 5 MG TABLETS PO SCH (21:36)
[2021-11-21] MEDS: THIAMINE HCL 100 MG TABLET (FP) PO SCH (21:36)
[2021-11-21] MEDS: ATORVASTATIN CA 40 MG TABLET (FP) PO SCH (21:36)
[2021-11-22] MEDS: INSULIN SLIDING SCALE (NOVOLOG) 1 VIAL SQ SCH ×2 (07:33→16:34)
[2021-11-22] MEDS: TIOTROPIUM BROMIDE 2.5 MCG (SPIRIVA) RESPIMAT INHALER IH SCH (09:56)
[2021-11-22] MEDS: LISINOPRIL 20 MG TABLET PO SCH (09:56)
[2021-11-22] MEDS: PRENATAL VITAMINS W/ FOLIC ACID TABLET (FP) PO SCH (09:56)
[2021-11-22] MEDS: FAMOTIDINE 20 MG TABLET PO SCH (09:56)
[2021-11-22] MEDS: THIAMINE HCL 100 MG TABLET (FP) PO SCH (21:11)
[2021-11-22] MEDS: MELATONIN 5 MG TABLETS PO SCH (21:11)
[2021-11-22] MEDS: ATORVASTATIN CA 40 MG TABLET (FP) PO SCH (21:11)
[2021-11-23] MEDS: INSULIN SLIDING SCALE (NOVOLOG) 1 VIAL SQ SCH ×2 (07:33→16:32)
[2021-11-23] MEDS: PRENATAL VITAMINS W/ FOLIC ACID TABLET (FP) PO SCH (10:32)
[2021-11-23] MEDS: FAMOTIDINE 20 MG TABLET PO SCH (10:33)
[2021-11-23] MEDS: LISINOPRIL 20 MG TABLET PO SCH (10:33)
[2021-11-23] MEDS: TIOTROPIUM BROMIDE 2.5 MCG (SPIRIVA) RESPIMAT INHALER IH SCH (10:33)
[2021-11-23 16:49] VITALS: BP 157/85; PULSE 84; TEMP 97.1
== END 2021-11-23 17:25 | disposition left against medical advice (07) | DRG 770 ==
LOC: YASAS 11:33 → Y3W 11:34
PROVIDERS: ADMIT Allergy & Immunology; ATTEND Psychiatry & Neurology Pain Medicine
PROC: HZ42ZZZ Group Counseling for Substance Abuse Treatment, Cognitive-Behavioral (ICD-10-PCS; principal; 2021-11-21)
DX: F10.20 Alcohol dependence, uncomplicated (principal); F14.20 Cocaine dependence, uncomplicated; I10 Essential (primary) hypertension; E78.5 Hyperlipidemia, unspecified; G47.00 Insomnia, unspecified; J44.9 Chronic obstructive pulmonary disease, unspecified; E11.9 Type 2 diabetes mellitus without complications; Z87.891 Personal history of nicotine dependence
CPT/HCPCS: 82962

== ENCOUNTER 2022-08-22 12:39 | Inpatient (IN) | payer OTHER ==
[2022-08-22 12:51] VITALS: BMI 33.5
[2022-08-22] MEDS ORDERED: DICYCLOMINE HCL 10 MG CAPSULE PO PRN (13:40)
[2022-08-22] MEDS ORDERED: POLYETHYLENE GLYCOL (HEALTHYLAX) 3350 17 GM PACKET PO PRN (13:40)
[2022-08-22] MEDS ORDERED: MAG HYDROX/AL HYDROX/SIMETH 30 ML UNIT-DOSE CUP PO PRN (13:40)
[2022-08-22] MEDS ORDERED: IBUPROFEN 400 MG TABLET (FP) PO PRN (13:40)
[2022-08-22] MEDS ORDERED: guaiFENesin 600 MG TABLET.ER (FP) PO PRN (13:40)
[2022-08-22] MEDS ORDERED: chlordiazePOXIDE HCL 25 MG CAPSULE PO PRN (13:40)
[2022-08-22] MEDS ORDERED: hydrOXYzine PAMOATE 25 MG CAPSULE (FP) PO PRN (13:40)
[2022-08-22] MEDS ORDERED: IBUPROFEN 600 MG TABLET (FP) PO PRN (13:40)
[2022-08-22] MEDS ORDERED: ONDANSETRON *ODT* 4 MG TABLET SL PRN (13:40)
[2022-08-22] MEDS ORDERED: MAGNESIUM HYDROX 2400MG/30ML ORAL SUSPENSION 30 ML CUP PO PRN (13:40)
[2022-08-22] MEDS ORDERED: METHOCARBAMOL 500 MG TABLET PO PRN (13:40)
[2022-08-22] MEDS ORDERED: ACETAMINOPHEN 325 MG TABLET (FP) PO PRN (13:40)
[2022-08-22] MEDS ORDERED: BENZONATATE 200 MG CAPSULE PO PRN (13:40)
[2022-08-22] MEDS ORDERED: LOPERAMIDE HCL 2 MG CAPSULE PO PRN (13:40)
[2022-08-22] MEDS ORDERED: BISMUTH SUBSALICYLATE 262 MG/15 ML BTL PO PRN (13:40)
[2022-08-22] MEDS ORDERED: BENZOCAINE/MENTHOL (CHLORASEPTIC ) LOZENGE MM PRN (13:40)
[2022-08-22] MEDS ORDERED: ALBUTEROL SO4 HFA INHALER IH PRN (13:44)
[2022-08-22] MEDS ORDERED: chlordiazePOXIDE HCL 25 MG CAPSULE PO SCH (17:00)
[2022-08-22] MEDS: INSULIN SLIDING SCALE (NOVOLOG) 1 VIAL SQ SCH ×2 (17:01→21:09)
[2022-08-22] MEDS: chlordiazePOXIDE HCL 25 MG CAPSULE PO SCH ×2 (17:37→22:22)
[2022-08-22] MEDS: THIAMINE HCL 100 MG TABLET (FP) PO SCH (22:23)
[2022-08-22] MEDS: MELATONIN 5 MG TABLETS PO SCH (22:23)
[2022-08-23] MEDS: chlordiazePOXIDE HCL 25 MG CAPSULE PO SCH ×4 (05:27→22:02)
[2022-08-23] MEDS: INSULIN SLIDING SCALE (NOVOLOG) 1 VIAL SQ SCH ×4 (06:15→21:34)
[2022-08-23] MEDS: PRENATAL VITAMINS W/ FOLIC ACID TABLET (FP) PO SCH (10:19)
[2022-08-23] MEDS: FAMOTIDINE 20 MG TABLET PO SCH (10:19)
[2022-08-23] MEDS: TIOTROPIUM BROMIDE 2.5 MCG (SPIRIVA) RESPIMAT INHALER IH SCH (10:20)
[2022-08-23 11:35] LABS: HEMATOCRIT 33.9 % (35.4-49); HEMOGLOBIN 11.5 GM/dL (11.7-16.9); MCH 27.9 pg (25.7-33.7); MCHC 33.9 g/dl (32.0-35.9); MEAN CELL VOLUME 82.1 fl (80-96); MEAN PLT VOLUME 8.6 fl (7.5-11.1); PLATELET COUNT 345 10^3/uL (134-434); RBC 4.13 M/mm3 (4.00-5.60); RDW 15.1 % (11.9-15.9); WHITE BLOOD COUNT 6.6 K/mm3 (4.0-10.0)
[2022-08-23 12:19] LABS: ALBUMIN 2.7 g/dl (3.4-5.0); BLOOD UREA NITROGEN 14.9 mg/dL (7-18); CALCIUM 8.3 mg/dL (8.5-10.1)
[2022-08-23 12:22] LABS: CREATININE 0.8 mg/dL (0.55-1.3)
[2022-08-23 12:24] LABS: BILIRUBIN,TOTAL 0.2 mg/dL (0.2-1)
[2022-08-23 17:18] VITALS: RESP 18
[2022-08-23] MEDS: MELATONIN 5 MG TABLETS PO SCH (22:02)
[2022-08-23] MEDS: THIAMINE HCL 100 MG TABLET (FP) PO SCH (22:02)
[2022-08-24] MEDS: chlordiazePOXIDE HCL 25 MG CAPSULE PO SCH ×2 (05:24→10:25)
[2022-08-24] MEDS: INSULIN SLIDING SCALE (NOVOLOG) 1 VIAL SQ SCH ×2 (06:21→11:27)
[2022-08-24] MEDS ORDERED: INSULIN SLIDING SCALE (NOVOLOG) 1 VIAL SQ ONE (06:23)
[2022-08-24 09:15] VITALS: BP 142/75; PULSE 88; TEMP 98.9
[2022-08-24] MEDS: FAMOTIDINE 20 MG TABLET PO SCH (10:24)
[2022-08-24] MEDS: PRENATAL VITAMINS W/ FOLIC ACID TABLET (FP) PO SCH (10:24)
[2022-08-24] MEDS: TIOTROPIUM BROMIDE 2.5 MCG (SPIRIVA) RESPIMAT INHALER IH SCH (10:25)
[2022-08-25] MEDS ORDERED: chlordiazePOXIDE HCL 10 MG CAPSULE PO PRN
[2022-08-25] MEDS ORDERED: chlordiazePOXIDE HCL 10 MG CAPSULE PO SCH (05:00)
[2022-08-26] MEDS ORDERED: chlordiazePOXIDE HCL 10 MG CAPSULE PO SCH (05:00)
[2022-08-27] MEDS ORDERED: chlordiazePOXIDE HCL 10 MG CAPSULE PO ONE (05:00)
== END 2022-08-24 12:45 | disposition left against medical advice (07) | DRG 770 ==
LOC: YASAS 12:39 → Y5N 13:18 → Y3N 14:41
PROVIDERS: ADMIT Allergy & Immunology; ATTEND Surgery
PROC: HZ2ZZZZ Detoxification Services for Substance Abuse Treatment (ICD-10-PCS; principal; 2022-08-22)
DX: F10.230 Alcohol dependence with withdrawal, uncomplicated (principal); F14.20 Cocaine dependence, uncomplicated; E78.1 Pure hyperglyceridemia; I10 Essential (primary) hypertension; J43.9 Emphysema, unspecified; J45.20 Mild intermittent asthma, uncomplicated; K21.9 Gastro-esophageal reflux disease without esophagitis; R73.03 Prediabetes
CPT/HCPCS: 36415; 80053; 82962; 85027; 86780; C9803-CS; U0003; U0005

== ENCOUNTER 2023-07-03 13:55 | Inpatient (IN) | payer OTHER ==
[2023-07-03 14:58] VITALS: BMI 31.2
[2023-07-03] MEDS ORDERED: BENZONATATE 200 MG CAPSULE PO PRN (17:47)
[2023-07-03] MEDS ORDERED: IBUPROFEN 400 MG TABLET (FP) PO PRN (17:47)
[2023-07-03] MEDS ORDERED: BISMUTH SUBSALICYLATE 524 MG/30 ML PO PRN (17:47)
[2023-07-03] MEDS ORDERED: MAGNESIUM HYDROX 2400MG/30ML ORAL SUSPENSION 30 ML CUP PO PRN (17:47)
[2023-07-03] MEDS ORDERED: guaiFENesin 600 MG TABLET.ER (FP) PO PRN (17:47)
[2023-07-03] MEDS ORDERED: POLYETHYLENE GLYCOL (HEALTHYLAX) 3350 17 GM PACKET PO PRN (17:47)
[2023-07-03] MEDS ORDERED: ACETAMINOPHEN 325 MG TABLET (FP) PO PRN (17:47)
[2023-07-03] MEDS ORDERED: MAG HYDROX/AL HYDROX/SIMETH 30 ML UNIT-DOSE CUP PO PRN (17:47)
[2023-07-03] MEDS ORDERED: LOPERAMIDE HCL 2 MG CAPSULE PO PRN (17:47)
[2023-07-03] MEDS ORDERED: P-EPHED 60MG/TRIPROLIDI 2.5MG TABLET PO PRN (17:47)
[2023-07-03] MEDS ORDERED: DICYCLOMINE HCL 10 MG CAPSULE PO PRN (17:47)
[2023-07-03] MEDS ORDERED: BENZOCAINE/MENTHOL (CHLORASEPTIC ) LOZENGE MM PRN (17:47)
[2023-07-03] MEDS ORDERED: ONDANSETRON *ODT* 4 MG TABLET SL PRN (17:47)
[2023-07-03] MEDS ORDERED: ALBUTEROL SO4 HFA INHALER IH PRN (17:49)
[2023-07-03] MEDS: LISINOPRIL 10 MG TABLET PO ONE (19:32)
[2023-07-03] MEDS: ATORVASTATIN CA 40 MG TABLET (FP) PO SCH (22:28)
[2023-07-03] MEDS: MELATONIN 5 MG TABLETS PO SCH (22:28)
[2023-07-03] MEDS: THIAMINE HCL 100 MG TABLET (FP) PO SCH (22:28)
[2023-07-04] MEDS ORDERED: diazePAM 5 MG TABLET PO PRN (09:18)
[2023-07-04] MEDS ORDERED: chlordiazePOXIDE HCL 25 MG CAPSULE PO PRN (09:19)
[2023-07-04] MEDS: PRENATAL VITAMINS W/ FOLIC ACID TABLET (FP) PO SCH (10:25)
[2023-07-04] MEDS: LISINOPRIL 20 MG TABLET PO SCH (10:25)
[2023-07-04] MEDS: FAMOTIDINE 20 MG TABLET PO SCH (10:25)
[2023-07-04] MEDS: TIOTROPIUM BROMIDE 2.5 MCG (SPIRIVA) RESPIMAT INHALER IH SCH (10:26)
[2023-07-04] MEDS: chlordiazePOXIDE HCL 25 MG CAPSULE PO SCH (10:30)
[2023-07-04] MEDS ORDERED: diazePAM 5 MG TABLET PO SCH (11:00)
[2023-07-04 11:01] LABS: CHLORIDE 102 mmol/L (98-107); HEMATOCRIT 34.7 % (35.4-49); HEMOGLOBIN 11.3 GM/dL (11.7-16.9); MCH 27.3 pg (25.7-33.7); MCHC 32.7 g/dl (32.0-35.9); MEAN CELL VOLUME 83.6 fl (80-96); MEAN PLT VOLUME 7.6 fl (7.5-11.1); PLATELET COUNT 365 10^3/uL (134-434); RBC 4.15 M/mm3 (4.00-5.60); RDW 15.6 % (11.9-15.9); SODIUM 136 mmol/L (136-145); WHITE BLOOD COUNT 8.6 K/mm3 (4.0-10.0)
[2023-07-04 11:10] LABS: BLOOD UREA NITROGEN 11.2 mg/dL (7-18); CALCIUM 8.4 mg/dL (8.5-10.1)
[2023-07-04 11:11] LABS: ALBUMIN 2.7 g/dl (3.4-5.0); ANION GAP 7 mmol/L (4-13); CO2 28 mmol/L (21-32); GLUCOSE,RANDOM 124 mg/dL (74-106)
[2023-07-04 11:13] LABS: CREATININE 0.7 mg/dL (0.55-1.3); SGPT/ALT 17 U/L (13-61)
[2023-07-04 11:14] LABS: BILIRUBIN,TOTAL 0.3 mg/dL (0.2-1); SGOT/AST 15 U/L (15-37)
[2023-07-04 11:15] LABS: ALK PHOS 78 U/L (45-117); TOT PROT 6.1 g/dl (6.4-8.2)
[2023-07-04] MEDS: IBUPROFEN 600 MG TABLET (FP) PO PRN (22:41)
[2023-07-05 16:40] VITALS: BP 153/90; PULSE 89; RESP 18; TEMP 98.4
[2023-07-06] MEDS ORDERED: chlordiazePOXIDE HCL 25 MG CAPSULE PO SCH (05:00)
[2023-07-06] MEDS ORDERED: diazePAM 5 MG TABLET PO SCH (06:00)
[2023-07-07] MEDS ORDERED: chlordiazePOXIDE HCL 10 MG CAPSULE PO PRN
[2023-07-07] MEDS ORDERED: chlordiazePOXIDE HCL 10 MG CAPSULE PO SCH (05:00)
[2023-07-07] MEDS ORDERED: diazePAM 5 MG TABLET PO SCH (06:00)
[2023-07-08] MEDS ORDERED: chlordiazePOXIDE HCL 10 MG CAPSULE PO SCH (05:00)
[2023-07-08] MEDS ORDERED: diazePAM 5 MG TABLET PO ONE (06:00)
[2023-07-09] MEDS ORDERED: chlordiazePOXIDE HCL 10 MG CAPSULE PO ONE (05:00)
== END 2023-07-05 18:32 | disposition left against medical advice (07) | DRG 770 ==
LOC: YASAS 13:55 → Y6N 17:50
PROVIDERS: ADMIT Allergy & Immunology; ATTEND Allergy & Immunology
PROC: HZ2ZZZZ Detoxification Services for Substance Abuse Treatment (ICD-10-PCS; principal; 2023-07-03)
DX: F10.230 Alcohol dependence with withdrawal, uncomplicated (principal); F14.20 Cocaine dependence, uncomplicated; F19.282 Other psychoactive substance dependence with psychoactive substance-induced sleep disorder; E78.5 Hyperlipidemia, unspecified; I10 Essential (primary) hypertension; J41.1 Mucopurulent chronic bronchitis; J45.20 Mild intermittent asthma, uncomplicated; K21.9 Gastro-esophageal reflux disease without esophagitis; R73.03 Prediabetes; Z87.891 Personal history of nicotine dependence
CPT/HCPCS: 0241U-QW; 36415; 71045-TC-FY; 80053; 80307; 82962; 85027; 86780; 93005; 93010

== ENCOUNTER 2023-11-08 16:50 | Inpatient (IN) | payer MEDICARE, OTHER ==
[2023-11-08 20:09] VITALS: BMI 30.4
[2023-11-08] MEDS ORDERED: guaiFENesin 600 MG TABLET.ER (FP) PO PRN (21:39)
[2023-11-08] MEDS ORDERED: MAGNESIUM HYDROX 2400MG/30ML ORAL SUSPENSION 30 ML CUP PO PRN (21:39)
[2023-11-08] MEDS ORDERED: BENZONATATE 200 MG CAPSULE PO PRN (21:39)
[2023-11-08] MEDS ORDERED: IBUPROFEN 400 MG TABLET (FP) PO PRN (21:39)
[2023-11-08] MEDS ORDERED: ONDANSETRON *ODT* 4 MG TABLET SL PRN (21:39)
[2023-11-08] MEDS ORDERED: NALOXONE HCL 0.4 MG/ML VIAL IM PRN (21:39)
[2023-11-08] MEDS ORDERED: ACETAMINOPHEN 325 MG TABLET (FP) PO PRN (21:39)
[2023-11-08] MEDS ORDERED: BISMUTH SUBSALICYLATE 524 MG/30 ML PO PRN (21:39)
[2023-11-08] MEDS ORDERED: MAG HYDROX/AL HYDROX/SIMETH 30 ML UNIT-DOSE CUP PO PRN (21:39)
[2023-11-08] MEDS ORDERED: BENZOCAINE/MENTHOL (CHLORASEPTIC ) LOZENGE MM PRN (21:39)
[2023-11-08] MEDS ORDERED: POLYETHYLENE GLYCOL (HEALTHYLAX) 3350 17 GM PACKET PO PRN (21:39)
[2023-11-08] MEDS ORDERED: NALOXONE (NARCAN) HCL 4 MG/0.1 ML SPRAY NS PRN (21:39)
[2023-11-08] MEDS ORDERED: LOPERAMIDE HCL 2 MG CAPSULE PO PRN (21:39)
[2023-11-09] MEDS: THIAMINE 100 MG TABLET PO SCH (00:19)
[2023-11-09] MEDS: MELATONIN 5 MG TABLETS PO SCH (00:19)
[2023-11-09] MEDS: cloNIDine HCL 0.1 MG TABLET PO ONE (02:09)
[2023-11-09] MEDS: hydrOXYzine PAMOATE 25 MG CAPSULE (FP) PO PRN (02:09)
[2023-11-09] MEDS: METHOCARBAMOL 500 MG TABLET PO PRN (02:09)
[2023-11-09] MEDS: PRENATAL VITAMINS W/ FOLIC ACID TABLET (FP) PO SCH (10:15)
[2023-11-09] MEDS: IBUPROFEN 600 MG TABLET (FP) PO PRN (10:17)
[2023-11-09 12:46] LABS: HEMATOCRIT 37.8 % (35.4-49); HEMOGLOBIN 12.5 GM/dL (11.7-16.9); MCH 27.7 pg (25.7-33.7); MEAN CELL VOLUME 83.9 fl (80-96); MEAN PLT VOLUME 7.8 fl (7.5-11.1); PLATELET COUNT 366 10^3/uL (134-434); RDW 16.1 % (11.9-15.9); WHITE BLOOD COUNT 5.9 K/mm3 (4.0-10.0)
[2023-11-09 13:06] VITALS: BP 149/77; PULSE 84; RESP 17; TEMP 98
[2023-11-09 14:06] LABS: POTASSIUM 4.3 mmol/L (3.5-5.1)
[2023-11-09 14:07] LABS: BLOOD UREA NITROGEN 12.3 mg/dL (7-18); CALCIUM 8.7 mg/dL (8.5-10.1)
[2023-11-09 14:13] LABS: BILIRUBIN,TOTAL 0.4 mg/dL (0.2-1); TOT PROT 6.3 g/dl (6.4-8.2)
[2023-11-09 14:28] LABS: CREATININE 0.9 mg/dL (0.55-1.3)
== END 2023-11-09 01:57 | disposition home or self-care (01) | DRG 897 ==
LOC: YASAS 16:50 → Y3N 22:23 → Y6N 23:07
PROVIDERS: ADMIT Allergy & Immunology; ATTEND Surgery
PROC: HZ2ZZZZ Detoxification Services for Substance Abuse Treatment (ICD-10-PCS; principal; 2023-11-08)
DX: F10.230 Alcohol dependence with withdrawal, uncomplicated (principal); F14.20 Cocaine dependence, uncomplicated; F19.280 Other psychoactive substance dependence with psychoactive substance-induced anxiety disorder; Z59.02 Unsheltered homelessness; F19.24 Other psychoactive substance dependence with psychoactive substance-induced mood disorder; I10 Essential (primary) hypertension; J44.9 Chronic obstructive pulmonary disease, unspecified; K21.9 Gastro-esophageal reflux disease without esophagitis
CPT/HCPCS: 36415; 80053; 80305; 80307; 82962; 85027; 86780; 93005; 93010

== ENCOUNTER 2024-01-08 10:40 | Inpatient (IN) | payer OTHER ==
[2024-01-08 12:25] VITALS: BMI 13.6
[2024-01-08] MEDS ORDERED: MAGNESIUM HYDROX 2400MG/30ML ORAL SUSPENSION 30 ML CUP PO PRN (14:49)
[2024-01-08] MEDS ORDERED: MAG HYDROX/AL HYDROX/SIMETH 30 ML UNIT-DOSE CUP PO PRN (14:49)
[2024-01-08] MEDS ORDERED: guaiFENesin 600 MG TABLET.ER (FP) PO PRN (14:49)
[2024-01-08] MEDS ORDERED: BENZONATATE 200 MG CAPSULE PO PRN (14:49)
[2024-01-08] MEDS ORDERED: POLYETHYLENE GLYCOL (HEALTHYLAX) 3350 17 GM PACKET PO PRN (14:49)
[2024-01-08] MEDS ORDERED: LOPERAMIDE HCL 2 MG CAPSULE PO PRN (14:49)
[2024-01-08] MEDS ORDERED: amLODIPine BESYLATE 5 MG TABLET (FP) ONE (15:38)
[2024-01-08] MEDS ORDERED: LISINOPRIL 10 MG TABLET ONE (15:38)
[2024-01-08] MEDS: LISINOPRIL 20 MG TABLET PO SCH (15:46)
[2024-01-08] MEDS: amLODIPine BESYLATE 10 MG TABLET (FP) PO SCH (15:47)
[2024-01-08] MEDS: ATORVASTATIN CA 20 MG TABLET (FP) PO SCH (21:20)
[2024-01-08] MEDS: MELATONIN 5 MG TABLETS PO SCH (21:20)
[2024-01-08] MEDS: FAMOTIDINE 20 MG TABLET PO SCH (21:20)
[2024-01-08] MEDS: THIAMINE 100 MG TABLET PO SCH (21:21)
[2024-01-09] MEDS: PRENATAL VITAMINS W/ FOLIC ACID TABLET (FP) PO SCH (09:45)
[2024-01-09] MEDS: TIOTROPIUM BROMIDE 2.5 MCG (SPIRIVA) RESPIMAT INHALER IH SCH (09:45)
[2024-01-09 11:37] LABS: URINE APPEARANCE CLEAR; URINE BILIRUBIN NEGATIVE (NEGATIVE); URINE COLOR YELLOW; URINE GLUCOSE (UA) NEGATIVE (NEGATIVE); URINE KETONE NEGATIVE (NEGATIVE); URINE LEUK ESTERASE NEGATIVE (NEGATIVE); URINE NITRITE NEGATIVE (NEGATIVE); URINE PROTEIN NEGATIVE (NEGATIVE); URINE UROBILINOGEN 0.2 mg/dL (0.2-1.0)
[2024-01-09] MEDS: IBUPROFEN 600 MG TABLET (FP) PO PRN (18:15)
[2024-01-09] MEDS: ALBUTEROL SO4 HFA INHALER IH PRN (21:16)
[2024-01-10 12:03] LABS: HEMATOCRIT 39.8 % (35.4-49); HEMOGLOBIN 12.9 GM/dL (11.7-16.9); MCH 27.6 pg (25.7-33.7); MCHC 32.5 g/dl (32.0-35.9); MEAN CELL VOLUME 84.9 fl (80-96); MEAN PLT VOLUME 8.1 fl (7.5-11.1); PLATELET COUNT 335 10^3/uL (134-434); RBC 4.69 M/mm3 (4.00-5.60); RDW 14.9 % (11.9-15.9)
[2024-01-10 12:22] LABS: POTASSIUM 4.2 mmol/L (3.5-5.1)
[2024-01-10 12:25] LABS: CALCIUM 9.1 mg/dL (8.5-10.1)
[2024-01-10 12:26] LABS: ALBUMIN 3.3 g/dl (3.4-5.0); BLOOD UREA NITROGEN 11.9 mg/dL (7-18)
[2024-01-10 12:29] LABS: CREATININE 0.8 mg/dL (0.55-1.3)
[2024-01-10 12:31] LABS: BILIRUBIN,TOTAL 0.5 mg/dL (0.2-1)
[2024-01-12] MEDS: traZODone HCL 50 MG TABLET (FP) PO SCH (21:29)
[2024-01-13] MEDS: BACLOFEN 10 MG TABLET (FP) PO SCH (21:28)
[2024-01-14] MEDS ORDERED: LACTULOSE 20 GM/30 ML UDC (FOR ORAL USE ONLY) PO PRN (15:42)
[2024-01-14] MEDS: ACETAMINOPHEN 325 MG TABLET (FP) PO PRN (21:21)
[2024-01-15] MEDS: BENZOCAINE 20 % GEL TUBE MM SCH (14:00)
[2024-01-18] MEDS: IBUPROFEN 400 MG TABLET (FP) PO PRN (21:20)
[2024-01-21] MEDS: OXYMETAZOLINE 0.05% NASAL SOLUTION 15 ML BOTTLE NS PRN (15:43)
[2024-01-22] MEDS: LORATADINE 10 MG TABLET PO PRN (10:05)
[2024-01-22] MEDS: LACTULOSE 20 GM/30 ML UDC (FOR ORAL USE ONLY) PO SCH (15:32)
[2024-01-23] MEDS: BENZOCAINE/MENTHOL (CHLORASEPTIC ) LOZENGE MM PRN (10:39)
[2024-01-28] MEDS ORDERED: BENZOCAINE 20 % GEL TUBE MM PRN (10:48)
[2024-01-29] MEDS: LIDOCAINE 5% TOPICAL PATCH TP SCH (13:01)
[2024-01-29] MEDS: LIDOCAINE PATCH REMOVAL MC SCH (21:21)
[2024-01-31] MEDS ORDERED: BENZONATATE 200 MG CAPSULE PO PRN (13:34)
[2024-01-31] MEDS: AZITHROMYCIN 250 MG TABLET PO ONE (14:36)
[2024-02-01] MEDS ORDERED: AZITHROMYCIN 500 MG TABLET PO SCH (10:00)
[2024-02-01] MEDS: AZITHROMYCIN 250 MG TABLET PO SCH (10:11)
[2024-02-02] MEDS: guaiFENesin 600 MG TABLET.ER (FP) PO PRN (10:15)
[2024-02-05 06:45] VITALS: TEMP 97.8
[2024-02-05 09:33] VITALS: BP 131/66; PULSE 74; RESP 18
== END 2024-02-05 09:12 | disposition home or self-care (01) | DRG 895 ==
LOC: YASAS 10:40 → Y3W 16:11
PROVIDERS: ADMIT Allergy & Immunology; ATTEND Psychiatry & Neurology Pain Medicine
PROC: HZ42ZZZ Group Counseling for Substance Abuse Treatment, Cognitive-Behavioral (ICD-10-PCS; principal; 2024-01-08)
DX: F10.20 Alcohol dependence, uncomplicated (principal); F14.20 Cocaine dependence, uncomplicated; F19.282 Other psychoactive substance dependence with psychoactive substance-induced sleep disorder; E72.20 Disorder of urea cycle metabolism, unspecified; F41.9 Anxiety disorder, unspecified; F32.A Depression, unspecified; E78.5 Hyperlipidemia, unspecified; I10 Essential (primary) hypertension; J41.1 Mucopurulent chronic bronchitis; J45.20 Mild intermittent asthma, uncomplicated; J30.2 Other seasonal allergic rhinitis; K21.9 Gastro-esophageal reflux disease without esophagitis; K08.89 Other specified disorders of teeth and supporting structures; R73.03 Prediabetes
CPT/HCPCS: 0241U-QW; 36415; 80053; 80305; 80307; 81003; 82140; 82652; 83735; 85027; 86780; 87811; J0475